=== PATIENT | male | born 1955 | race Caucasian/White ===

== ENCOUNTER 2018-11-10 22:57 | Inpatient (IN) | payer MEDICAID, MEDICARE ==
[2018-11-10 22:58] VITALS: BMI 31.9
[2018-11-10] MEDS ORDERED: Aspirin 325 mg EC Tablets PO STA (23:31)
--- NOTE | 2018-11-10 23:31 | C.PDOC ---
History Of Present Illness Patient presents to ED with complaint of palpitations and mild nausea that began at 1900 today while he was at work. Patient was found in the ED to be in rapid,uncontrolled A-fib at a rate between 150-160. Patient was given 25mg of Cardizem IV. Rate then became controlled between 80-90. Patient stated that he felt better. Patient denies chest pain, SOB, and vomiting. Time Seen by Provider: 11/10/18 23:20 Chief Complaint (Nursing): Palpitations History Per: Patient History/Exam Limitations: no limitations Onset/Duration Of Symptoms: Hrs (2) Current Symptoms Are (Timing): Better Severity: Moderate Pain Scale Rating Of: 5 Reports Recently: Treated By A Physician Recent travel outside of the [place]: No Additional History Per: Patient Past Medical History Reviewed: Historical Data, Nursing Documentation, Vital Signs Vital Signs: Last Vital Signs Temp 97.7 F 11/10/18 23:10 Pulse 143 H 11/10/18 23:10 Resp 22 11/10/18 23:10 BP 152/81 H 11/10/18 23:10 Pulse Ox 97 11/10/18 23:10 Primary Care Provider: Non [facility] Provider, - Medical History PMH: HTN Surgical History: No Surg Hx Family History: States: Unknown Family Hx - Social History Hx Tobacco Use: No Hx Alcohol Use: No Hx Substance Use: No - Immunization History Hx Tetanus Toxoid Vaccination: No Hx Influenza Vaccination: Yes Hx Pneumococcal Vaccination: No Review Of Systems Constitutional: Negative for: Fever, Chills, Weakness ENT: Negative for: Throat Pain Cardiovascular: Positive for: Palpitations. Negative for: Chest Pain Respiratory: Negative for: Cough, Shortness of Breath Gastrointestinal: Positive for: Nausea. Negative for: Vomiting, Abdominal Pain, Constipation Musculoskeletal: Negative for: Back Pain Skin: Negative for: Rash Neurological: Negative for: Weakness, Numbness Psych: Negative for: Anxiety Physical Exam - Physical Exam Appears: Non-toxic Skin: Warm, Dry Head: Normacephalic Eye(s): bilateral: Normal Inspection Oral Mucosa: Moist Neck: Trachea Midline, Supple Chest: Symmetrical Cardiovascular: Rhythm Irregular (irregularly) Respiratory: No Rales, No Rhonchi, No Wheezing Gastrointestinal/Abdominal: Bowel Sounds (normoactive), Soft, No Tenderness, Distention, Other (tympanic to percussion) Back: No CVA Tenderness Extremity: No Tenderness, Capillary Refill <2 Sec, Other (mild degenertive arthritic changes to the bilateral hands) Extremity: Bilateral: Atraumatic, Normal Color And Temperature Pulses: Left Dorsalis Pedis: Normal, Right Dorsalis Pedis: Normal Neurological/Psych: Oriented x3, Normal Speech, Normal Cognition, Normal Motor, Normal Sensation Gait: Unable To Assess ED Course And Treatment - Laboratory Results Result Diagrams: 11/10/18 23:55 11/10/18 23:55 ECG: Interpreted By Me, Viewed By Me ECG Rhythm: Atrial Fibrillation (147), Nonspecific Changes O2 Sat by Pulse Oximetry: 97 (in RA) Pulse Ox Interpretation: Normal - Radiology CXR: Interpreted by Me, Viewed By Me Progress Note: EKG and CXR ordered for patient. Labs ordered with CMP, lipase, CBC, troponin, PTT, prothrombin, and UA. Patient given Cardizem 25mg IVP, Aspirin PO, and Lovenox. Repeat EKG ordered for patient. Repeat EKG- A-fib at [address] bpm[address] Non-specific ST/T wave changes. Critical Care Time - Critical Care Note Total Time (in mins): 30 Documented critical care: time excludes all time spent performing seperately billable procedures. Disposition Discussed With : Gilbert Salgado Comment: accepted the pt on his service and took over the care at 12:32 AM Doctor Will See Patient In The: Hospital Counseled Patient/Family Regarding: Studies Performed, Diagnosis - Disposition Disposition: HOSPITALIZED Disposition Time: 23:30 Condition: FAIR Forms: [facility] (Dominican) - POA Present On Arrival: Poor Glycemic Control - Clinical Impression Clinical Impression: Palpitations, New onset a-fib, Thrombocytopenia - Scribe Statement The provider has reviewed the documentation as recorded by the Scribe (Georgette Salamanca) All medical record entries made by the Scribe were at my direction and pers onally dictated by me. I have reviewed the chart and agree that the record accurately reflects my personal performance of the history, physical exam, medical decision making, and the department course for this patient. I have also personally directed, reviewed, and agree with the discharge instructions and disposition. Decision To Admit - Pt Status Changed To: Hospital Disposition Of: Inpatient - Admit Certification Admit to Inpatient:: After my assessment, the patient will require hospitalization for at least two midnights. This is because of the severity of symptoms shown, intensity of services needed, and/or the medical risk in this patient being treated as an outpatient. - InPatient: Physician Admission Certification: I certify that this patient requires 2 or more midnights of care for the following reason:: After my assessment, the patient will require hospitalization for at least two midnights. This is because of the severity of symptoms shown, intensity of services needed, and/or the medical risk in this patient being treated as an outpatient. - . Bed Request Type: Telemetry Admitting Physician: Gilbert Salgado Patient Diagnosis: Palpitations, New onset a-fib, Thrombocytopenia
[2018-11-10] MEDS ORDERED: Enoxaparin 40 mg Syringe SC STA (23:32)
[2018-11-10] MEDS ORDERED: Enoxaparin 100 mg Syringe ONE (23:42)
[2018-11-10 23:59] LABS: BASO % 0.7 % (0.0-2.0); EOS # 0.3 K/uL (0.0-0.7); EOS % 5.1 % (0.0-4.0); HEMOGLOBIN 13.8 g/dL (12.0-18.0); LYMPH % 30.3 % (20.0-40.0); MEAN CELL VOLUME 88.9 fL (80.0-94.0); MEAN CORPUSCULAR HEMOGLOBIN 30.1 pg (27.0-31.0); MEAN CORPUSCULAR HGB CONC 33.9 g/dL (33.0-37.0); MEAN PLATELET VOLUME 9.1 fL (7.2-11.7); MONO # 0.4 K/uL (0.0-0.8); MONO % 5.6 % (0.0-10.0); NEUT # 3.9 K/uL (1.8-7.0); NEUT % 58.3 % (50.0-75.0); NRBC % 0.1 % (0.0-2.0); RBC 4.57 Mil/uL (4.40-5.90); WHITE BLOOD COUNT 6.7 K/uL (4.8-10.8)
[2018-11-11 00:07] LABS: PARTIAL THROMBOPLASTIN TIME 37.4 SECONDS (21-34); PROTHROMBIN TIME 10.7 SECONDS (9.7-12.2)
[2018-11-11 00:18] LABS: ALB/GLOB RATIO 1.3 (1.0-2.1); ALBUMIN 3.9 g/dL (3.5-5.0); ALT/SGPT 33 U/L (21-72); AST/SGOT 27 U/L (17-59); BLOOD UREA NITROGEN 18 mg/dL (9-20); GFR NON-AFRICAN AMERICAN > 60; LIPASE 75 U/L (23-300)
[2018-11-11 01:51] LABS: URINE BACTERIA RARE (<OCC); URINE BILIRUBIN NEGATIVE (NEGATIVE); URINE BLOOD NEGATIVE (NEGATIVE); URINE CLARITY Clear (Clear); URINE COLOR Yellow (YELLOW); URINE GLUCOSE (UA) 2+ mg/dL (Normal); URINE LEUKOCYTE ESTERASE NEG Leu/uL (Negative); URINE PROTEIN NEGATIVE (NEGATIVE); URINE UROBILINOGEN NORMAL mg/dL (0.2-1.0)
--- NOTE | 2018-11-11 07:45 | CP.PCM.PN ---
Subjective - Date & Time of Evaluation Date of Evaluation: 11/11/18 Time of Evaluation: 07:42 - Subjective Subjective: Progress note for Dr Salgado Patient is a 63 year old male with a past medical hx of HTN and arthritis, who presented to the hospital with palpitations since last night at 7pm. He also felt slightly lightheaded. He has had once previous similar episode 1 year ago that lasted for 15 minutes. He has not seen and team physician in the past. The patient currently reports feeling better, however admits to having bilateral ankle swelling. He says he had this in the past after long hours at work. He currently denies having palpitations, dizziness/LH, chest pain, dyspnea, changes in vision, headaches, weakness, nausea, vomiting, abdominal pain. PMD: Dr. Salgado PMHx: HTN, Arthritis SurgHx: denies FamHx: Father- MA in 50s Allergies: NKDA SocHx: denies tobacco, alcohol and drug use; former anesthesiologist in [place] Medications: Losartan 50mg PO daily, Naproxen as needed for arthritic pain Objective - Vital Signs/Intake and Output Vital Signs (last 24 hours): Temp Pulse Resp BP Pulse Ox 98.2 F 83 14 92/53 L 95 11/11/18 07:20 11/11/18 07:20 11/11/18 07:20 11/11/18 07:20 11/11/18 07:20 - Labs Labs: 11/10/18 23:55 11/10/18 23:55 PT 10.7 SECONDS (9.7-12.2) 11/10/18 23:55 INR 1.0 11/10/18 23:55 APTT 37.4 SECONDS (21-34) H 11/10/18 23:55 - Constitutional Appears: No Acute Distress - Head Exam Head Exam: ATRAUMATIC, NORMAL INSPECTION - Eye Exam Eye Exam: EOMI, Normal appearance - ENT Exam ENT Exam: Mucous Membranes Moist - Respiratory Exam Respiratory Exam: Clear to Ausculation Bilateral, NORMAL BREATHING PATTERN. absent: Rales, Rhonchi, Wheezes, Respiratory Distress - Cardiovascular Exam Cardiovascular Exam: Irregular Rhythm, +S1, +S2. absent: Tachycardia - GI/Abdominal Exam GI & Abdominal Exam: Soft, Normal Bowel Sounds. absent: Distended, Firm, Tenderness - Extremities Exam Extremities Exam: Pedal Edema (1+ pitting edema b/l). absent: Tenderness - Neurological Exam Neurological Exam: Alert, Awake, CN II-XII Intact, Motor Sensory Deficit, Oriented x3 - Psychiatric Exam Psychiatric exam: Normal Affect, Normal Mood - Skin Skin Exam: Dry, Intact, Normal Color, Warm Assessment and Plan - Assessment and Plan (Free Text) Plan: Patient is a 63 year old male with a past medical hx of HTN and arthritis, who presented to the hospital with palpitations since last night at 7pm. New Onset Atrial Fibrillation - Collection Technician consulted, Dr. Mobley; will follow up recommendations - Chadsvasc score 1- 2 (Hx of HTN, possible DM?) - Trops x2: negative, f/u trop#3 - EKG: afib @78bpm; EKG#2 afib @93bpm - CXR: no active disease - TSH: wnl, 0.84 - In the ED, was given Cardizem 25mg IV stat, Lovenox 100mg SC stat, and Aspirin 325mg PO stat - Echo ordered: f/u - Lovenox 100mg SC Q12h Elevated glucose - Per the patient, his last A1c was within the normal range- denies hx of DM - UA: 3+ glucose - A1c ordered: f/u Case discussed with Dr. Damian Lindquist, PGY2
--- NOTE | 2018-11-11 09:12 | RAD ---
Chest x-ray single frontal view HISTORY: Palpitations. COMPARISON: 08/24/2013 FINDINGS: No focal infiltrate or effusion. Mild patchy atelectasis at the left lung base. Tortuous ectatic aorta. Bilateral hilar prominence. Mild cardiomegaly. Degenerative changes in the spine. IMPRESSION: No focal infiltrate or effusion. Mild patchy atelectasis at the left lung base. Tortuous ectatic aorta. Bilateral hilar prominence. Mild cardiomegaly.
--- NOTE | 2018-11-11 16:51 | CP.PCM.CON ---
History of Present Illness - History of Present Illness History of Present Illness: I was asked to see patient by Dr Salgado Patient seen 11/11/18 [id number] Patient is a 63 year old male with HTN, idiopathic thrombocytopenia who presents with palpitations and dyspnea. The patient has noted the onset of rapd heart rate which he thought was due to espresso. He came to the ER and was found to be in afib with RVR. He denies chest pain or syncope. Review of Systems - Constitutional Constitutional: absent: As Per HPI, Anorexia, Chills, Daytime Sleepiness, Excessive Sweating, Fatigue, Fever, Frequent Falls, Headache, Increased Appetite, Lethargy, Malaise, Night Sweats, Snoring, Sleep Apnea, Weight Gain, Weight Loss, Weakness, Other - EENT Eyes: absent: As Per HPI, Blind Spots, Blurred Vision, Change in Vision, D ecreased Night Vision, Diplopia, Discharge, Dry Eye, Exophthalmos, Floaters, Irritation, Itchy Eyes, Loss of Peripheral Vision, Pain, Photophobia, Requires Corrective Lenses, Sees Flashes, Spots in Vision, Tunnel Vision, Other Visual Disturbances, Loss of Vision, Other Ears: absent: As Per HPI, Decreased Hearing, Ear Discharge, Ear Pain, Tinnitus, Abnormal Hearing, Disequilibrium, Dizziness, Other Nose/Mouth/Throat: absent: As Per HPI, Epistaxis, Nasal Congestion, Nasal Discharge, Nasal Obstruction, Nasal Trauma, Nose Pain, Post Nasal Drip, Sinus Pain, Sinus Pressure, Bleeding Gums, Change in Voice, Dental Pain, Dry Mouth, Dysphagia, Halitosis, Hoarsness, Lip Swelling, Mouth Lesions, Mouth Pain, Odynophagia, Sore Throat, Throat Swelling, Tongue Swelling, Facial Pain, Neck Pain, Neck Mass, Other - Cardiovascular Cardiovascular: Dyspnea, Palpitations - Respiratory Respiratory: absent: As Per HPI, Cough, Dyspnea, Hemoptysis, Dyspnea on Exertion, Wheezing, Snoring, Stridor, Pain on Inspiration, Chest Congestion, Excessive Mucous Production, Change in Mucous Color, Pain with Coughing, Other - Gastrointestinal Gastrointestinal: absent: As Per HPI, Abdominal Pain, Belching, Bloating, Change in Bowel Habits, Change in Stool Character, Coffee Ground Emesis, Constipation, Cramping, Diarrhea, Dyspepsia, Dysphagia, Early Satiety, Excessive Flatus, Fecal Incontinence, Heartburn, Hematemesis, Hematochezia, Loose Stools, Melena, Nausea, Odynophagia, Temesmus, Vomiting, Other - Genitourinary Genitourinary: absent: As Per HPI, Change in Urinary Stream, Difficulty Urinating, Dysuria, Flank Pain, Hematuria, Pyuria, Nocturia, Urinary Incontinence, Urinary Frequency, Urinary Hesitance, Urinary Urgency, Voiding Freq/Small Amts, Freq UTI, Hx Renal/Bladder Calculi, Hx /Renal Surgery, B ladder Distension, Other - Musculoskeletal Musculoskeletal: absent: As Per HPI, Abnormal Gait, Arthralgias, Atrophy, Back Pain, Deformity, Joint Swelling, Limited Range of Motion, Loss of Height, Muscle Cramps, Muscle Weakness, Myalgias, Neck Pain, Numbness, Radiating Pain into Limb, Stiffness, Tingling, Other - Integumentary Integumentary: absent: As Per HPI, Acne, Alopecia, Bleeding Lesions, Change in Hair, Change in Nails, Change in Pigmentation, Changing Lesions, Dry Skin, Erythema, Furuncle, Hirsutism, Lesions, New Lesions, Non-Healing Lesions, Photosensitivity, Pruritus, Rash, Skin Pain, Skin Ulcer, Sores, Striae, Swelling, Unusual Bruising, Wounds, Jaundice, Other - Neurological Neurological: absent: As Per HPI, Abnormal Gait, Abnormal Hearing, Abnormal Movements, Abnormal Speech, Behavioral Changes, Burning Sensations, Confusion, Convulsions, Disequilibrium, Dizziness, Numbness, Focal Weakness, Frequent Falls, Headaches, Lack of Coordination, Loss of Vision, Memory Loss, Paresthesias, Radicular Pain, Restless Legs, Sensory Deficit, Syncope, Tingling, Tremor, Vertigo, Weakness, Other Visual Disturbances, Other - Psychiatric Psychiatric: absent: As Per HPI, Abnormal Sleep Pattern, Anhedonia, Anxiety, Auditory Hallucinations, Behavioral Changes, Change in Appetite, Change in Libido, Confusion, Depression, Difficulty Concentrating, Hallucinations, Homicidal Ideation, Hopelessness, Irritability, Memory Loss, Mood Swings, Panic Attacks, Paranoia, Suicidal Ideation, Visual Hallucinations, Tactile Hallucinations, Other - Endocrine Endocrine: absent: As Per HPI, Change in Body Appearance, Change in Libido, Cold Intolorance, Deepening of Voice, Excessive Sweating, Fatigue, Flushing, Heat Intolorance, Increase in Ring/Shoe/Hat Size, Palpitations, Polydipsia, Polyphagia, Polyuria, Other - Hematologic/Lymphatic Hematologic: absent: As Per HPI, Easy Bleeding, Easy Bruising, Lymphadenopathy, Other Past Patient History - Past Medical History & Family History Past Medical History?: Yes - Past Social History Smoking Status: Never Smoked - CARDIAC Hx Hypertension: Yes - HEENT Hx HEENT Problems: No Other/Comment: wears eyeglasses - RENAL Hx Chronic Kidney Disease: No - ENDOCRINE/METABOLIC Hx Endocrine Disorders: No - HEMATOLOGICAL/ONCOLOGICAL Hx Blood Disorders: No Other/Comment: Low platelets - MUSCULOSKELETAL/RHEUMATOLOGICAL Hx Falls: No - GASTROINTESTINAL Hx Gastrointestinal Disorders: No - GENITOURINARY/GYNECOLOGICAL Hx Genitourinary Disorders: No - PSYCHIATRIC Hx Substance Use: No - SURGICAL HISTORY Hx Surgeries: No - ANESTHESIA Hx Anesthesia: No Hx Anesthesia Reactions: No Hx Malignant Hyperthermia: No Has any member of the family had a problem w/ anesthesia?: No Meds Allergies/Adverse Reactions: Allergies Allergy/AdvReac Type Severity Reaction Status Date / Time No Known Allergies Allergy Verified 11/10/18 23:16 - Medications Medications: Current Medications Enoxaparin Sodium (Lovenox) 100 mg SC Q12 [place] Physical Exam - Constitutional Appears: Non-toxic - Head Exam Head Exam: NORMAL INSPECTION - Eye Exam Eye Exam: Normal appearance - ENT Exam ENT Exam: Mucous Membranes Moist - Neck Exam Neck exam: Positive for: Full Rom - Respiratory Exam Respiratory Exam: NORMAL BREATHING PATTERN - Cardiovascular Exam Cardiovascular Exam: Irregular Rhythm - GI/Abdominal Exam GI & Abdominal Exam: Normal Bowel Sounds - Rectal Exam Rectal Exam: Deferred - Extremities Exam Extremities exam: Positive for: pedal edema - Back Exam Back exam: NORMAL INSPECTION - Neurological Exam Neurological exam: Alert, Oriented x3 - Psychiatric Exam Psychiatric exam: Normal Affect - Skin Skin Exam: Normal Color Results - Vital Signs Recent Vital Signs: Last Vital Signs Temp 98.3 F 11/11/18 08:30 Pulse 93 H 11/11/18 08:30 Resp 20 11/11/18 08:40 BP 130/69 11/11/18 08:30 Pulse Ox 99 11/11/18 08:30 - Labs Result Diagrams: 11/10/18 23:55 11/10/18 23:55 Labs: Laboratory Results - last 24 hr 11/10/18 11/10/18 11/10/18 23:55 23:55 23:55 WBC 6.7 RBC 4.57 Hgb 13.8 Hct 40.7 MCV 88.9 MCH 30.1 MCHC 33.9 RDW 13.0 Plt Count 84 L MPV 9.1 Neut % (Auto) 58.3 Lymph % (Auto) 30.3 [place] % (Auto) 5.6 Eos % (Auto) 5.1 H Baso % (Auto) 0.7 Neut # (Auto) 3.9 Lymph # (Auto) 2.0 [place] # (Auto) 0.4 Eos # (Auto) 0.3 Baso # (Auto) 0.0 PT 10.7 INR 1.0 APTT 37.4 H Sodium 136 Potassium 3.7 Chloride 98 Carbon Dioxide 30 Anion Gap 12 BUN 18 Creatinine 0.7 L Est GFR ( Amer) > 60 Est GFR (Non-Af Amer) > 60 Random Glucose 184 H Hemoglobin A1c Calcium 9.0 Total Bilirubin 0.3 AST 27 ALT 33 Alkaline Phosphatase 62 Troponin I < 0.0120 Total Protein 6.9 Albumin 3.9 Globulin 3.0 Albumin/Globulin Ratio 1.3 Lipase 75 TSH 3rd Generation 0.84 Urine Color Urine Clarity Urine pH Ur Specific [place] Urine Protein Urine Glucose (UA) Urine Ketones Urine Blood Urine Nitrate Urine Bilirubin Urine Urobilinogen Ur Leukocyte Esterase Urine WBC (Auto) Urine RBC (Auto) Urine Bacteria 11/11/18 11/11/18 11/11/18 01:43 05:55 14:23 WBC RBC Hgb Hct MCV MCH MCHC RDW Plt Count MPV Neut % (Auto) Lymph % (Auto) [place] % (Auto) Eos % (Auto) Baso % (Auto) Neut # (Auto) Lymph # (Auto) [place] # (Auto) Eos # (Auto) Baso # (Auto) PT INR APTT Sodium Potassium Chloride Carbon Dioxide Anion Gap BUN Creatinine Est GFR ( Amer) Est GFR (Non-Af Amer) Random Glucose Hemoglobin A1c Calcium Total Bilirubin AST ALT Alkaline Phosphatase Troponin I < 0.0120 < 0.0120 Total Protein Albumin Globulin Albumin/Globulin Ratio Lipase TSH 3rd Generation Urine Color Yellow Urine Clarity Clear Urine pH 6.0 Ur Specific [place] 1.021 Urine Protein Negative Urine Glucose (UA) 2+ H Urine Ketones Negative Urine Blood Negative Urine Nitrate Negative Urine Bilirubin Negative Urine Urobilinogen Normal Ur Leukocyte Esterase Neg Urine WBC (Auto) < 1 Urine RBC (Auto) < 1 Urine Bacteria Rare 11/11/18 14:23 WBC RBC Hgb Hct MCV MCH MCHC RDW Plt Count MPV Neut % (Auto) Lymph % (Auto) [place] % (Auto) Eos % (Auto) Baso % (Auto) Neut # (Auto) Lymph # (Auto) [place] # (Auto) Eos # (Auto) Baso # (Auto) PT INR APTT Sodium Potassium Chloride Carbon Dioxide Anion Gap BUN Creatinine Est GFR ( Amer) Est GFR (Non-Af Amer) Random Glucose Hemoglobin A1c 6.0 Calcium Total Bilirubin AST ALT Alkaline Phosphatase Troponin I Total Protein Albumin Globulin Albumin/Globulin Ratio Lipase TSH 3rd Generation Urine Color Urine Clarity Urine pH Ur Specific [place] Urine Protein Urine Glucose (UA) Urine Ketones Urine Blood Urine Nitrate Urine Bilirubin Urine Urobilinogen Ur Leukocyte Esterase Urine WBC (Auto) Urine RBC (Auto) Urine Bacteria - EKG Data EKG Interpreted by: Myself Assessment & Plan (1) New onset a-fib Assessment and Plan: The LV function is normal, but there is mild LA dilatation. I recommend addition of Eliquis 5 mg BID. Can use cardizem for rate control. Given thrombocytopenia recommend repeat CBC tomorrow, and if platelet cound is stable on Eliquis, can d/c home. will scheduled outpatient follow up for possible JOHN/cardioversion. Status: Acute (2) Thrombocytopenia Assessment and Plan: recheck platelet count in am while on Eliquis. if stable can d/c home on Eliquis Status: Acute
[2018-11-11] MEDS: diltiaZEM 180 mg/24 Hours CD Cap PO SCH (17:43)
--- NOTE | 2018-11-11 18:57 | CARD ---
APPROVED REPORT Date of service: 11/11/2018 EXAM: Two-dimensional and M-mode echocardiogram with Doppler and color Doppler. 2D DIMENSIONS IVSd1.0 (0.7-1.1cm)LVDd4.7 (3.9-5.9cm) PWd1.0 (0.7-1.1cm)LA Syztxx14 (18-58mL) LVDs3.3 (2.5-4.0cm)FS (%) 29.3 % LVEF (%)56.1 (>50%)LVEF (Hernandez's)62.46 % M-Mode DIMENSIONS Left Atrium (MM)4.33 (2.5-4.0cm)IVSd1.04 (0.7-1.1cm) Aortic Root3.75 (2.2-3.7cm)LVDd5.08 (4.0-5.6cm) Aortic Cusp Exc.2.06 (1.5-2.0cm)PWd0.99 (0.7-1.1cm) FS (%) 34 %LVDs3.36 (2.0-3.8cm) LVEF (%)62 (>50%) Mitral Valve MV E Imifbcgy23.3cm/sMV A Kkknnjqj74.6cm/sE/A ratio1.8 TDI Lateral E' Peak V11.13cm/sMedial E' Peak V9.77cm/sE/Lateral E'5.3 E/Medial E'6.1 Tricuspid Valve TR Peak Aqyxlkjk107dy/sTR Peak Gr.[id number] LEFT VENTRICLE There is normal left ventricular wall thickness. The left ventricular function is normal. The left ventricular ejection fraction is within the normal range. There is normal LV segmental wall motion. Diastolic function appears normal. Normal left atrial pressure. RIGHT VENTRICLE The right ventricle is mildly dilated. The right ventricular systolic functionm appears mildly reduced. ATRIA The left atrium is mildly dilated. The right atrium is mildly dilated. AORTIC VALVE The aortic valve is normal in structure. No aortic regurgitation is present. There is no aortic valvular stenosis. MITRAL VALVE The mitral valve is normal in structure. There is no mitral valve regurgitation noted. TRICUSPID VALVE The tricuspid valve is normal in structure. There is mild tricuspid regurgitation. PULMONIC VALVE The pulmonary valve is normal in structure. GREAT VESSELS The aortic root is normal in size. The IVC was not visualized. PERICARDIAL EFFUSION There is no pericardial effusion. <Conclusion> The left ventricular function is normal. There is normal LV segmental wall motion. Diastolic function appears normal. Normal left atrial pressure. The right ventricle is mildly dilated. The right ventricular systolic functionm appears mildly reduced. Mild bi-atrial dilatation There is mild tricuspid regurgitation. There is no pericardial effusion.
[2018-11-11] MEDS ORDERED: Enoxaparin 100 mg Syringe SC SCH (22:00)
[2018-11-12 01:07] VITALS: RESP 20
[2018-11-12 07:20] LABS: BASO % 0.9 % (0.0-2.0); EOS # 0.4 K/uL (0.0-0.7); EOS % 6.2 % (0.0-4.0); HEMOGLOBIN 12.6 g/dL (12.0-18.0); LYMPH # 1.3 K/uL (1.0-4.3); LYMPH % 23.2 % (20.0-40.0); MEAN CELL VOLUME 89.1 fL (80.0-94.0); MEAN CORPUSCULAR HEMOGLOBIN 30.5 pg (27.0-31.0); MEAN CORPUSCULAR HGB CONC 34.3 g/dL (33.0-37.0); MEAN PLATELET VOLUME 9.3 fL (7.2-11.7); MONO # 0.3 K/uL (0.0-0.8); MONO % 5.9 % (0.0-10.0); NEUT # 3.6 K/uL (1.8-7.0); NEUT % 63.8 % (50.0-75.0); RBC 4.13 Mil/uL (4.40-5.90); RED CELL DISTRIBUTION WIDTH 13.1 % (11.5-14.5); WHITE BLOOD COUNT 5.7 K/uL (4.8-10.8)
[2018-11-12 07:40] LABS: ALB/GLOB RATIO 1.4 (1.0-2.1); ALBUMIN 3.3 g/dL (3.5-5.0); ALT/SGPT 27 U/L (21-72); AST/SGOT 20 U/L (17-59); BLOOD UREA NITROGEN 17 mg/dL (9-20); CALCIUM 8.5 mg/dl (8.6-10.4); GFR NON-AFRICAN AMERICAN > 60
[2018-11-12 07:57] VITALS: PULSE 59
--- NOTE | 2018-11-12 08:15 | HP ---
HISTORY OF PRESENT ILLNESS: A 63-year-old male, history of hypertension, admitted to the hospital with chief complaint of sudden onset of palpitation, proceeded by cough. The patient is a nonsmoker. The patient is . PHYSICAL EXAMINATION: GENERAL: The patient is awake, alert, oriented. VITAL SIGNS: Blood pressure 138/80, pulse is 76. HEENT: Within normal limits. NECK: Supple. CHEST: Symmetrical. HEART: Regular. ABDOMEN: Soft. EXTREMITIES: No edema. IMPRESSION: The patient suffers from . Gilbert Salgado MD
[2018-11-12 08:26] VITALS: BP 115/71; TEMP 97.6; O2SAT 98
[2018-11-12] MEDS: diltiaZEM 180 mg/24 Hours CD Cap PO SCH (09:38)
--- NOTE | 2018-11-12 12:05 | CARD ---
APPROVED REPORT Date of service: 11/11/2018 EKG Measurement Heart [id number] <Conclusion> Atrial fibrillation Abnormal ECG
--- NOTE | 2018-11-12 12:05 | CARD ---
APPROVED REPORT Date of service: 11/10/2018 EKG Measurement Heart [id number] <Conclusion> Atrial fibrillation with rapid ventricular response Nonspecific ST and T wave abnormality Abnormal ECG
--- NOTE | 2018-11-12 14:26 | CP.PCM.PN ---
Subjective - Date & Time of Evaluation Date of Evaluation: 11/12/18 Time of Evaluation: 14:23 - Subjective Subjective: Medicine Note for Dr. Salgado's Service Patient was seen and examined at bedside. Patient reports he is feeling well. He denied any current palpitations or bleeding. Objective - Vital Signs/Intake and Output Vital Signs (last 24 hours): Temp Pulse Resp BP Pulse Ox 97.6 F 59 L 20 115/71 98 11/12/18 07:00 11/12/18 07:51 11/12/18 07:00 11/12/18 07:00 11/12/18 07:00 Intake and Output: 11/12/18 11/12/18 06:59 18:59 Intake Total 350 Balance 350 - Labs Labs: 11/12/18 07:08 11/12/18 07:08 PT 11.0 SECONDS (9.7-12.2) 11/12/18 07:08 INR 1.0 11/12/18 07:08 APTT 37.0 SECONDS (21-34) H 11/12/18 07:08 - Additional Findings Additional findings: - Constitutional Appears: No Acute Distress - Head Exam Head Exam: ATRAUMATIC, NORMAL INSPECTION - Eye Exam Eye Exam: EOMI, Normal appearance - ENT Exam ENT Exam: Mucous Membranes Moist - Respiratory Exam Respiratory Exam: Clear to Ausculation Bilateral, NORMAL BREATHING PATTERN. absent: Rales, Rhonchi, Wheezes, Respiratory Distress - Cardiovascular Exam Cardiovascular Exam: Irregular Rhythm, +S1, +S2. absent: Tachycardia - GI/Abdominal Exam GI & Abdominal Exam: Soft, Normal Bowel Sounds. absent: Distended, Firm, Tenderness - Extremities Exam Extremities Exam: Pedal Edema (1+ pitting edema b/l). absent: Tenderness - Neurological Exam Neurological Exam: Alert, Awake, CN II-XII Intact, Motor Sensory Deficit, Oriented x3 - Psychiatric Exam Psychiatric exam: Normal Affect, Normal Mood - Skin Skin Exam: Dry, Intact, Normal Color, Warm Assessment and Plan - Assessment and Plan (Free Text) Plan: New Onset Atrial Fibrillation - Engagement Specialist consulted, Dr. Mobley; will follow up recommendations - Chadsvasc score 1- 2 (Hx of HTN) - Trops x3: negative - EKG: afib @78bpm; EKG#2 afib @93bpm - CXR: no active disease - TSH: wnl, 0.84 - In the ED, was given Cardizem 25mg IV stat, Lovenox 100mg SC stat, and Aspirin 325mg PO stat - Echo ordered: f/u - Lovenox 100mg SC Q12h- now started Eliquis 5mg PO BID IGT - Per the patient, his last A1c was within the normal range- denies hx of DM - UA: 3+ glucose - A1c ordered: 6.0 Disposition: As per Dr. Salgado, patient is medically stable for discharge. He will continue with Eliquis 5 mg by mouth twice a day and Cardizem 180mg by mouth daily until told by a physician to discontinue. He will follow up with Dr. Salgado on Thursday11/15/18 to have blood work drawn to check his platelets. Patient is to make an appointment with Dr. Mobley to have an outpatient JOHN/ Cardioversion. Please call today and make an appointment for next week with Dr. Mobley. DW Dr. Salgado, Kayla Coronel DO, PGY2
--- NOTE | 2018-11-13 12:26 | CARD ---
APPROVED REPORT Date of service: 11/10/2018 EKG Measurement Heart [id number] <Conclusion> Atrial fibrillation Abnormal ECG
== END 2018-11-12 14:10 | disposition home or self-care (01) | DRG 138 ==
LOC: C.ER 22:57 → C.9E 11-11 00:31 → C.9I 11-11 06:52 → C.6T 11-11 14:33
PROVIDERS: ADMIT Internal Medicine Pulmonary Disease; ATTEND Internal Medicine Pulmonary Disease
DX: I48.91 Unspecified atrial fibrillation (principal); D69.3 Immune thrombocytopenic purpura; I10 Essential (primary) hypertension; M19.90 Unspecified osteoarthritis, unspecified site